=== PATIENT | female | born 1985 | race Asian ===

== ENCOUNTER 2023-11-10 08:42 | Emergency (ER) | payer OTHER ==
[~2023-11-10] VITALS: Ht 157.5 cm; Wt 72.0 kg
[~2023-11-10 08:42] MED LIST: NO MEDS
[2023-11-10 09:52] VITALS: BP 145/57; PULSE 100; RESP 20; TEMP 98
[2023-11-10] MEDS: ACETAMINOPHEN/CODEINE 300-30 MG TABLET PO ONE (11:07)
[2023-11-10] MEDS: IBUPROFEN 600 MG TABLET PO ONE (11:07)
[2023-11-10] MEDS ORDERED: ACET-2080 PO (11:26)
[2023-11-10] MEDS ORDERED: IBUP-1554 PO (11:26)
[2023-11-10] MEDS ORDERED: METH-659 PO (11:26)
== END 2023-11-10 12:16 | disposition home or self-care (01) ==
LOC: EMS 08:42
DX: S13.4XXA Sprain of ligaments of cervical spine, initial encounter (principal); S70.02XA Contusion of left hip, initial encounter; S70.12XA Contusion of left thigh, initial encounter; V49.88XA Car occupant (driver) (passenger) injured in other specified transport accidents, initial encounter; Y93.89 Activity, other specified; Y92.89 Other specified places as the place of occurrence of the external cause; Y99.8 Other external cause status
CPT/HCPCS: 72040; 84703; 99284; Z7502; Z7610